=== PATIENT | male | born 1965 | race Caucasian/White ===

== ENCOUNTER 2018-03-11 10:12 | Emergency (ER) | payer BC, OTHER ==
[2018-03-11 10:28] VITALS: BP 122/75
--- NOTE | 2018-03-11 10:41 | UC ---
Laceration HPI - HPI Summary HPI Summary: This is jose e Garza documenting for attending Dr. Andre Koroma MD. The patient is a 52 y/o M presenting to [facility] c/o open laceration to the left thumb nail at the base of the nail this morning. He was using a utility knife to cut a piece of hose when the knife broke and went through his nail. The pain is described as throbbing and aching and is rated 2/10 in severity. 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 Tetanus shot is UTD. No allergies. He takes Lipitor and Pantoprazole. - History Of Current Complaint Chief Complaint: UCLaceration Stated Complaint: THUMB LAC Time Seen by Provider: 03/11/18 10:34 Hx Obtained From: Patient Laceration Location: Finger - left thumb nail Mechanism Of Injury: Sharp Trauma - utility knife Onset/Duration: Sudden Onset, Lasting Minutes, Still Present Severity: Mild Pain Intensity: 2 Pain Scale Used: 0-10 Numeric Aggravating Factors: Nothing Hands: 1 - laceration to left thumb nail at base of nail and beginning of skin - Allergies/Home Medications Allergies/Adverse Reactions: Allergies Allergy/AdvReac Type Severity Reaction Status Date / Time No Known Allergies Allergy Verified 03/11/18 10:18 Home Medications: Home Medications Atorvastatin* [Lipitor 40 MG*] 40 mg PO DAILY 03/11/18 [History Confirmed ] Pantoprazole TAB (NF) [Protonix TAB (NF)] 40 mg PO DAILY 03/11/18 [History Confirmed 03/11/18] PMH/Surg Hx/FS Hx/Imm Hx Other Endocrine History: NEGATIVE: diabetes Other Cardiovascular History: NEGATIVE: HTN - Surgical History Surgical History: Yes Surgery Procedure, Year, and Place: RT TOTAL HIP REPLACEMENT 08/2016 - Family History Known Family History: Positive: Diabetes Negative: Hypertension - Social History Alcohol Use: Daily Substance Use Type: None Smoking Status (MU): Never Smoked Tobacco - Immunization History Most Recent Pneumonia Vaccination: Believes it to be last year Review of Systems Constitutional: Negative - fever Neurovascular: Other - laceration to left thumb in bed of nail with active bleeding All Other Systems Reviewed And Are Negative: Yes Physical Exam - Summary Physical Exam Summary: Appearance: Well-appearing, Well-nourished Skin: Warm Eyes: Normal ENT: Normal Neck: Supple, nontender Respiratory: Clear to auscultation Cardiovascular: Regular rate, regular rhythm. Normal S1, S2. Abdomen: Soft, nontender Musculoskeletal: Normal, Strength/ROM Intact, 1.2cm laceration lower margin of thumb nail extending 2mm lateral to nail fold of skin Neurological: Normal, A&Ox3 Psychiatric: Normal General: No acute distress Triage Information Reviewed: Yes Vital Signs: Initial Vital Signs Temp 97 F 03/11/18 10:23 Pulse 69 03/11/18 10:23 Resp 15 03/11/18 10:23 BP 122/75 03/11/18 10:23 Pulse Ox 100 03/11/18 10:23 Vital Signs Reviewed: Yes Laceration Repair - Laceration Repair 1 Procedure Summary: 1.2cm laceration lower margin of thumb nail extending 2mm lateral to nail fold of skin repaired with saline wash, tissue adhesive in single layer Description: Linear Cleansing Completed Via Routine Prep: Yes Closure Material: Skin Adhesive Closure Method: Single Layer Suture Of: Skin Re-Evaluation - Re-Evaluation First Eval Re-Evaluation Time: 11:15 Change: Improved Comment: I repaired the pt's laceration with tissue adhesive. Pt will be discharged home. He is agreeable with this plan. Laceration Course/Dx - Course/Dx Course Of Treatment: Left thumbnail repaired with dermabond, PO abx - Bactrim DS as outpt, RTC in 2 days for wound check - Differential Dx - Laceration/Wound Provider Diagnoses: left thumb nail laceration Discharge - Sign-Out/Discharge Documenting (check all that apply): Patient Departure - Pt will be discharged home. - Discharge Plan Condition: Stable Disposition: HOME Prescriptions: Sulfamethox/Trimethoprim DS* [Bactrim DS 800/160 TAB*] 1 tab PO BID 10 Days #20 tab Sulfamethox/Trimethoprim DS* [Bactrim DS 800/160 TAB*] 1 tab PO BID #20 tab Patient Education Materials: Skin Adhesive Care (ED) Referrals: Karuna Mon [Primary Care Provider] - Additional Instructions: Follow up at clinic for a wound re-check in 2 days. Return to urgent care or the emergency department for any new or worsening symptoms. - Billing Disposition and Condition Condition: STABLE Disposition: Home
== END 2018-03-11 11:27 | disposition home or self-care (01) ==
LOC: UCEAST 10:12
DX: S61.112A Laceration without foreign body of left thumb with damage to nail, initial encounter (principal); W26.0XXA Contact with knife, initial encounter; Y93.89 Activity, other specified; Y92.9 Unspecified place or not applicable
CPT/HCPCS: 12001; 99212; G0463